=== PATIENT | female | born 1960 | race Caucasian/White ===

== ENCOUNTER 2021-06-22 09:34 | Outpatient (CLI) | payer BC, SELFPAY ==
--- NOTE | ~2021-06-22 | MR_ITS ---
EXAMINATION: MR abdomen wo/w con DATE: 06/22/2021 11:05 INDICATION: Renal mass TECHNIQUE: Magnetic resonance imaging (MRI) of the abdomen was performed without and with 19 mL Multi gertrudis intravenous contrast. Sequences included coronal T2-weighted SS-FSE, coronal and axial FS 2D-F IESTA, axial STIR FSE, axial T2-weighted SS-FSE, axial T2-weighted FS SS-FSE, axial diffusion-weighte d SE, axial dual-echo T1-weighted FSPGR, and axial and coronal T1-weighted LAVA. Postcontrast axial T 1-weighted LAVA images were obtained in a time course. Postcontrast coronal T1-weighted LAVA images w ere obtained. COMPARISON: None. FINDINGS: Mild bibasilar atelectasis. Heart size is normal. No pericardial or pleural effusion. Liver, gallblad felipe, spleen, pancreas, bilateral adrenal glands and left kidney are normal. 1.3 x 1.1 cm T2 hyperinte nse cystic lesion at the lower pole of the right kidney with suggestion of a nearly indiscernible enh ancing internal septation. No evident larger enhancing soft tissue component in this could be consist ent with a Bosniak 2 cyst. Additional 5 mm simple appearing nonenhancing T2 hyperintense cyst in the mid right kidney. Small sliding-type hiatal hernia. Visualized portions of the bowels including the a ppendix are unremarkable. No pathologically enlarged abdominal lymphadenopathy. Mild lumbar levocurva ture with mild to moderate lower lumbar spondylosis. Normal bone marrow signal throughout. IMPRESSION: 1. 1.3 cm minimally complex Bosniak 2 right renal cyst and additional 5 mm right simple cyst. 2. Small sliding-type hiatal hernia. Reviewed, dictated and finalized at location A. IMPRESSION: 1. 1.3 cm minimally complex Bosniak 2 right renal cyst and additional 5 mm righ t simple cyst. 2. Small sliding-type hiatal hernia.
[2021-06-22 10:30] LABS: Estimated Glomerular Filt Rate > 60
== END 2021-06-22 09:35 | disposition home or self-care (01) ==
LOC: ANHIMG 09:37
PROVIDERS: PCP Pediatrics; Visit Provider Urology
DX: N28.89 Other specified disorders of kidney and ureter (principal); K44.9 Diaphragmatic hernia without obstruction or gangrene
CPT/HCPCS: 74183; A9577